=== PATIENT | female | born 1950 | race Caucasian/White ===

== ENCOUNTER → 2017-08-20 07:26 | Outpatient (CLI) | payer MEDICARE, BC, SELFPAY ==
--- NOTE | 2017-08-20 08:27 | PCM.OPRPT ---
Report of Operation Date of Procedure: 08/20/17 Pre-Operative Diagnosis: abnormal calcifications on right breast mammograms Post-Operative Diagnosis: same Surgery/Procedure Performed:: right stereotactic breast biopsy Description of Surgical Findings:: centrally located upper right breast abnormal calcifications Type of Anesthesia:: Local - 1% xylocaine Specimen's removed: right breast tissue Estimated Blood Loss (mL): < 1 Fluids Replaced: none Description of Procedure: After informed consent was given, the patient was brought into the breast biopsy suite. Appropriate time out protocol was followed. She was then placed in the prone position on the stereotactic biopsy table. The patients right breast was then placed in the opening at the head of the table. A fish technologist compression mammogram was then obtained in the CC view. The suspicious radiological lesion was then identified. Stereo pictures of the lesion were then taken for XYZ coordinates. The Mammotome biopsy stylus was then positioned where it would be entering into the patients breast. The skin at this site was then cleansed with a surgical skin preparation. The skin and subcutaneous tissues at this site were then infiltrated with 1% xylocaine. A small skin incision was made with an 11 blade scalpel. The biopsy stylus was then positioned into the patients breast at the proper coordinates of depth. Using the Mammotome vacuum-assist device, several core samples of breast tissue were obtained. A specimen mammogram was the obtained and revealed that the calcifications were within the specimen. A hemostatic marker clip was then placed into the biopsy cavity and a fish technologist film revealed that it was properly deployed. The patient was then placed in the supine position and pressure was applied to the breast until no active bleeding was noted. Steristrips were applied to reapproximate the skin. A unilateral mammogram in the CC and MLO view were then taken which revealed that the marker clip was in the same area as the previous suspicious lesion. The patient tolerated the procedure well and was discharged from the breast biopsy suite in good condition. Grafts/Implants Used: Titanium clip Lot [id number] - Complications none noted - Admit VTE Documentation VTE Present on Admission: No - low risk procedure for DVT/PE
--- NOTE | 2017-08-20 08:30 | BRBX_PTH ---
PATIENT: TIA RUIZ LOC: [facility] U#:[id number] AGE/SX: 75/F ROOM: RE08/20/[address]: Dr. Tia Read MD : [id number] BED: DIS: SPEC #: [id number] RECD: 08/20/17 14:41 STATUS: IDANIA REHubert #: [id number] DEDRA: 08/20/17 08:[address]: Tia Read DEPT: SURGICAL PATHOLOGY RECD BY: Don Mcclelland ENTERED: 08/20/17 14:41 SP TYPE: BREAST BX OTHR DR: Dr. Masoud Ramirez III, MD Tissues: Right breast, NOS Procedures: Surgery Specimen Level IV HEADER OPERATION: Right breast stereotactic needle core biopsy PRE-OP DIAGNOSIS: Microcalcifications TISSUE SUBMITTED: Right breast tissue ISCHEMIC TIME: 2 minutes FIXATION TIME: 11.5 hours MICROSCOPIC DIAGNOSIS Right breast, stereotactic needle core biopsy: Fibrocystic change, focal. Focal intraductal hyperplasia without atypia. Banal microcalcifications. No evidence of malignancy. AM:nayeli 08/21/17 COMMENT Rare vessel wall microcalcifications are also present. MICROSCOPIC DESCRIPTION Slides are reviewed. GROSS DESCRIPTION Received in fixative is one container labeled with the patient's name and designated right breast. The specimen consists of multiple irregular and elongated fragments of white-yellow soft tissue that in aggregate measure 3 x 2.2 x 0.2 cm. The specimen is totally submitted in one cassette. / AM:nayeli 08/20/17 TC:5 CPT: 78526
--- NOTE | 2017-08-20 08:30 | OP.PCM_ITS ---
Report of Operation Date of Procedure: 08/20/17 Pre-Operative Diagnosis: abnormal calcifications on right breast mammograms Post-Operative Diagnosis: same Surgery/Procedure Performed:: right stereotactic breast biopsy Description of Surgical Findings:: centrally located upper right breast abnormal calcifications Type of Anesthesia:: Local - 1% xylocaine Specimen's removed: right breast tissue Estimated Blood Loss (mL): < 1 Fluids Replaced: none Description of Procedure: After informed consent was given, the patient was brought into the breast biopsy suite. Appropriate time out protocol was followed. She was then placed in the prone position on the stereotactic biopsy table. The patient?s right breast was then placed in the opening at the head of the table. A heater furnace compression mammogram was then obtained in the CC view. The suspicious radiological lesion was then identified. Stereo pictures of the lesion were then taken for XYZ coordinates. The Mammotome biopsy stylus was then positioned where it would be entering into the patient?s breast. The skin at this site was then cleansed with a surgical skin preparation. The skin and subcutaneous tissues at this site were then infiltrated with 1% xylocaine. A small skin incision was made with an 11 blade scalpel. The biopsy stylus was then positioned into the patient?s breast at the proper coordinates of depth. Using the Mammotome vacuum-assist device, several core samples of breast tissue were obtained. A specimen mammogram was the obtained and revealed that the calcifications were within the specimen. A hemostatic marker clip was then placed into the biopsy cavity and a heater furnace film revealed that it was properly deployed. The patient was then placed in the supine position and pressure was applied to the breast until no active bleeding was noted. Steristrips were applied to reapproximate the skin. A unilateral mammogram in the CC and MLO view were then taken which revealed that the marker clip was in the same area as the previous suspicious lesion. The patient tolerated the procedure well and was discharged from the breast biopsy suite in good condition. Grafts/Implants Used: Titanium clip Lot [id number] - Complications none noted - Admit VTE Documentation VTE Present on Admission: No - low risk procedure for DVT/PE
== END ==
PROVIDERS: Family Provider Family Medicine; PCP Family Medicine; Visit Provider Surgery
DX: R92.8 Other abnormal and inconclusive findings on diagnostic imaging of breast (principal); R92.0 Mammographic microcalcification found on diagnostic imaging of breast
CPT/HCPCS: 19081; 88305; J7050; A4648

== ENCOUNTER 2021-10-04 09:17 | Emergency (ER) | payer MEDICARE, BC, SELFPAY ==
[2021-10-04 09:18] VITALS: BP 107/72; PULSE 88; RESP 16; TEMP 36.6; O2SAT 99; BMI 25.8
--- NOTE | 2021-10-04 09:35 | EKG12_ITS ---
Test Reason : CP Blood Pressure : / mmHG Vent. Rate : 082 BPM Atrial Rate : 082 BPM P-R Int : 144 ms QRS Dur : 078 ms QT Int : 358 ms P-R-T Axes : 065 088 069 degrees QTc Int : 418 ms Normal sinus rhythm Normal ECG Confirmed by CECY STEPHENS, ABBY ([id number]), index editor VINCE VARGAS ([id number]) on 10/05/2021 1:38:36 PM Referred By: PEDRO Confirmed By:ABBY SAM MD
--- NOTE | 2021-10-04 09:46 | EDS_ITS ---
HPI History of Present Illness Chief Complaint: Chest Pain Informant: patient Onset/Context/Timing Onset: Days Activity at onset: gradual Timing: Intermittent Quality: Positive for Burning Location: Substernal Current Severity: Gone Maximum Severity: Mild Worsened By: Breathing Relieved By: Nothing Associated Symptoms: Negative for Nausea, Vomiting, Diaphoresis, Dyspnea, Cough, Fever, Lightheadedness, Acid Reflux and Palpitations Narrative Narrative: 71-year-old female history of ovarian cancer with a hysterectomy in 2007 is done well since that time. She has no cardiac history. She is never had a DVT or PE. About 7 weeks ago she had a left knee replacement done at [facility]. Patient states the last 2 days she has had a burning discomfort in her chest. She normally does not get reflux. She denies any leg pain or swelling. She denies any hemoptysis. She says it is somewhat worse with deep breathing. Better when she is upright. Prior Similar Symptoms: No Recent Illness/Hospitalization: No CVD Risk Factors: Negative for Hypertension, Diabetes and Smoking PE Risk Factors: Positive for Recent Immobilization; Negative for Recent Travel/Surgery, Prior DVT or PE, Cancer and OCP + Smoking + >/=35 TAD Risk Factors: Negative for Marfan's Syndrome and Hypertension PFSH PFSH Home Medications latanoprost 1 drp EACH EYE QHS 10/04/21 [History Last Taken Unknown] Allergy/AdvReac Type Severity Reaction Status Date / Time No Known Allergies Allergy Verified 10/04/21 09:18 Social History Smoking Status: Never smoker ROS ROS ED ROS Narrative Chest pain. Review of Systems ROS Unobtainable: Denies due to encephalopathy Constitutional Constitutional ED: Denies fever(s) Eyes Eyes: Denies none ENT ENT ED: Denies ear pain Cardiovascular Cardiovascular: Reports as per HPI and chest pain; Denies palpitations or racing heartbeat Respiratory/Chest Respiratory/Chest: Denies cough or dyspnea Gastrointestinal Gastrointestinal: Denies abdominal pain, diarrhea, nausea or vomiting Genitourinary Genitourinary ED: Denies dysuria Musculoskeletal Musculoskeletal: Denies myalgias Integumentary Denies rash Neurologic Neurologic: Denies headache(s) Psychiatric Psychiatric: Denies depression Endocrine Endocrinology: Denies polyuria Hematologic/Lymphatic Hematologic/Lymphatic: Denies easy bruising Allergic/Immunologic Allergic/Immunologic ED: Denies urticaria EXAM Physical Exam Narrative Exam Narrative: 71-year-old female no acute distress. Vital signs are stable afebrile. She does not look septic or toxic. Currently she is symptom-free. P ulse ox 99% and room air no hypoxia. H EENT exam unremarkable. Neck nontender. Lungs clear to auscultation bilaterally. Heart regular rate and rhythm rate about 88 no murmur. Chest were nontender. Abdomen soft nontender. Moving all 4 extremities. Well-healed. Calf nontender without edema or cords. Normal director construction services strength bilaterally. Dorsi plantarflexion intact. Neurologic exam unremarkable. Const Vital Signs: 10/04/21 09:18 10/04/21 09:24 10/04/21 10:18 Temperature 97.8 F Temperature Source Temporal Pulse Rate 88 81 Respiratory Rate 16 16 Respiratory Effort Normal Non-Labored Blood Pressure 107/72 130/57 H Blood Pressure Mean 83 81 Pulse Ox 99 97 Oxygen Delivery Method Room Air Room Air 10/04/21 11:33 Temperature Temperature Source Pulse Rate 79 Respiratory Rate 16 Respiratory Effort Blood Pressure 130/67 H Blood Pressure Mean 88 Pulse Ox 98 Oxygen Delivery Method Room Air Positive well nourished and well developed; Negative for obese, cachectic, contractures or unkempt General Appearance ED: well developed and NAD; Negative for unkempt, cachectic, contractures or pallor Nutritional Appearance: Negative for cachectic or obese HEENT Reports moist mucous membranes normocephalic and atraumatic; Negative for trauma or tenderness Eyes PERRL and EOMs intact bilaterally General Eye ED: Negative for pale conjunctiva or scleral icterus Neck no lymphadenopathy, supple and no JVD General: Negative for tenderness Chest Wall inspection of chest normal and palpation of chest normal Chest: Negative for tenderness Resp normal respiratory effort and clear to auscultation bilaterally Effort and Inspection: respiratory distress Auscultation: Negative for rales, rhonchi or wheezes Cardio regular rate, regular rhythm, S1 normal heart sound, S2 normal heart sound and no murmurs Rate: Negative for bradycardia or tachycardic Rhythm: Negative for abnormal rhythm GI normal to inspection, nondistended, normoactive bowel sounds, soft to palpation, non-tender, non-distended and no masses; Negative for hepatosplenomegaly Auscultation: Negative for hyperactive bowel sounds Back/Spine no CVA tenderness and no thoracic nor lumbar tenderness General Back: Negative for CVA tenderness Extremity normal to inspection Extremity Narrative: Well-healed recent left knee surgery incision. General Extremety ED: Negative for edema or tenderness General Extremity: Negative for edema Neuro oriented x3 and CN's II-XII intact bilaterally Sensorium / Orientation: awake, alert, oriented to person, oriented to place and oriented to time Motor Exam: strength 5/5 throughout Psych mental status grossly normal Appearance: Negative for unkempt Attitude: No agitated Mood & Affect: Negative for depressed or tearful Skin no rashes or lesions noted and no wounds General Skin Exam: Negative for jaundice or pallor Heart Score History: Slightly/Non-Suspicious ECG: Normal Age: >/= 65 years Troponin: </= Normal Limit Score: 2 MDM MDM MDM Narrative Medical decision making narrative: 71-year-old female with atypical nonexertional chest discomfort. Undergo a cardiac work-up. Also a D-dimer due to her recent orthopedic surgery. Exam benign. Repeat exam at 10:40 AM patient is doing well. We discussed her test results. A CTA of the chest is ordered and we are waiting on that. Patient doing well at 11:40 AM. Will be discharged home. Lab Data Attestation: I reviewed the patient's lab results. Lab results narrative: CBC unremarkable white count of 6. H&H of 13 and 41. Platelets normal. Electrolytes unremarkable normal gap of 4. Normal BUN and creatinine. Normal troponin of 5. D-dimer is elevated 3.15 a CTA of the chest to be obtained. Labs: Laboratory Results - last 24 hr 10/04/21 10/04/21 10/04/21 09:30 09:30 09:30 WBC 6.1 RBC 4.39 Hgb 13.4 Hct 41.8 MCV 95.2 MCH 30.5 MCHC 32.1 RDW Std Deviation 44.7 H RDW Coeff of Vilma 12.7 Plt Count 279 MPV 9.8 Immature Gran % (Auto) 0.200 Neut % (Auto) 72.4 H Lymph % (Auto) 17.3 L Hancock % (Auto) 9.0 Eos % (Auto) 0.8 Baso % (Auto) 0.3 Absolute Neuts (auto) 4.4 Absolute Lymphs (auto) 1.06 Nucleated RBC % 0 D-Dimer Quant (PE/DVT) 3.15 H* Sodium 137 Potassium 3.7 Chloride 104 Carbon Dioxide 29.0 Anion Gap 4 L BUN 14 Creatinine 0.73 Estim Creat Clear Calc 50.18 Est GFR (MDRD) Af Amer 101 Est GFR (MDRD) Non-Af 83 BUN/Creatinine Ratio 19.1 Glucose 107 H Calcium 8.8 Troponin I High Sens 5 Radiography Chest X-Ray - ED: 1 View, Read by ED Physician, Heart, Lungs, Mediastinum, Bony Structures, No Acute Disease and Chronic Changes Diagnostic Testing: Clinical Impression(s) from Imaging Studies Chest X-Ray 10/04/21 09:50 IMPRESSION: Hyperinflation. No acute abnormality is seen. Electronically Signed: Ellis Conde MD at 10:48 EDT , Chest CTA 10/04/21 10:42 IMPRESSION: No evidence of pulmonary embolism. Focal infiltrate in the posterior aspect of the left upper lobe. There are 2 small alveolar rounded nodular densities in the left upper lobe as discussed. Follow-up is recommended in 3 months. Electronically Signed: Ellis Conde MD at 11:29 EDT , Chest x-ray, portable, single view interpreted by myself shows chronic changes no acute process. CTA of the chest is read by the radiologist reviewed by me shows no acute abnormality. Rounded densities. No PE. Rhythm Strip Rhythm Strip: Sinus Rhythm Rate: 82 Ectopy: None EKG Initial EKG: Attestation: I personally reviewed and interpreted this EKG as follows: Interpretation: Sinus Rhythm and No Acute Injury Pattern Comments: Normal sinus rhythm rate 82 no acute signs of IN nor ischemia. Discharge Plan Triage Chief Complaint: Chest Pain ED Provider: Tigre Parikh Dx/Rx/DC Orders Clinical Impression: Chest pain Instructions: ED Chest Pain, Uncertain Cause Prescriptions: No Action latanoprost 0.005 % drops 1 drp EACH EYE QHS RF: 0 Primary Care Provider: Westley Worthy Referrals: Westley Worthy MD [Primary Care Provider] - 3-5 Days if not improving Activity Restrictions/Additional Instructions: Your tests are unremarkable. The CAT scan showed no blood clot. There were small nodules seen which they may want to get a repeat chest x-ray in 3 months. We do not have a specific cause of your chest discomfort today. Disposition Disposition: Home, Self Care
--- NOTE | 2021-10-04 09:50 | RAD_ITS ---
STUDY: X-RAY CHEST REASON FOR EXAM: Female, 71 years old. Chest pain TECHNIQUE: Single AP portable view of the chest. COMPARISON: None. FINDINGS: EKG electrodes are seen. Hyperinflation. The lungs are clear. There is no demonstrated pleural abnormality. Normal size heart. Normal mediastinum and gino. Normal visualized pulmonary arteries. Normal visualized aortic arch and descending thoracic aorta. There are degenerative changes of the visualized thoracic spine. Normal visualized ribs, clavicles, and shoulders. There is no demonstrated abnormality of the visualized soft tissue structures of the upper abdomen. RAD/Chest 1 View (Portable) IMPRESSION: Hyperinflation. No acute abnormality is seen. Electronically Signed: Ellis Conde MD at 10:48 EDT ,
[2021-10-04 09:59] LABS: Absolute Lymphocyte Count 1.06 X10^3/uL (0.83-4.51); Absolute Neutrophil Count 4.4 X10^3/uL (2.0-7.7); Basophil# 0.02 X10^3/uL; Basophil% 0.3 % (0-1); Eosinophil# 0.05 X10^3/uL; Eosinophils% 0.8 % (0-5); Hematocrit 41.8 % (37-47); Hemoglobin 13.4 g/dL (12.0-15.0); Lymphocyte # 1.06 X10^3/ul (0.83-4.51); Lymphocyte % 17.3 % (19-41); Mean Corp Hgb Conc 32.1 g/dL (32-36); Mean Corpuscular Hgb 30.5 pg (27.0-32.0); Mean Corpuscular Volume 95.2 fL (81-99); Mean Platelet Vol. 9.8 fl (6.2-12.0); Monocyte# 0.55 X10^3/uL; NRBC Flagged by Analyzer 0 % (0-5); Neutrophil # 4.43 X10^3/uL (2.7-7.7); Neutrophil % 72.4 % (47-70); Platelet Count 279 K/mm3 (150-450); RBC Distribution Width CV 12.7 % (11.6-14.6); RBC Distribution Width SD 44.7 fl (35.1-43.9); Red Blood Count 4.39 M/mm3 (4.2-5.4); White Blood Count 6.1 K/mm3 (4.4-11.0)
[2021-10-04 10:11] LABS: Anion Gap 4 (5-15); BUN 14 mg/dL (7-18); BUN/Creat Ratio 19.1 RATIO (10-20); Calcium,Total 8.8 mg/dL (8.5-10.1); Chloride 104 mmol/L (98-107); Creatinine, Serum 0.73 mg/dL (0.55-1.02); EST Glomerular Filtration Rate 83 mL/min (>60); Est Glom Filt Rate - Afr Amer 101 mL/min (>60); Estimated Creatinine Clearance 50.18 ml/min; Glucose 107 mg/dL (74-106); Potassium 3.7 mmol/L (3.5-5.1); Sodium Level 137 mmol/L (136-145); Troponin-I HS 5 pg/mL (3.0-54.0)
[2021-10-04 10:13] LABS: D-Dimer Quantitative (DVT/PE) 3.15 FEU/ug/m (0.27-0.49)
[2021-10-04 10:18] VITALS: BP 130/57; PULSE 81; RESP 16; O2SAT 97
--- NOTE | 2021-10-04 10:42 | CT_ITS ---
STUDY: CTA CHEST REASON FOR EXAM: Female, 71 years old. Elevated d-dimer. Intermittent chest pain for 2 days. RADIATION DOSAGE (If Supplied By Facility): CTDIvol = ( 5.15 ) mGy, DLP = ( 244.94 ) mGycm TECHNIQUE: The examination was performed with the intravenous administration of IV 100mL [id number]-370. Post-processing of the angiographic images was performed, with multiplanar reformation and 3D reconstruction. Individualized dose optimization techniques were used for this CT. COMPARISON: Comparison is made with prior chest radiograph done earlier today. FINDINGS: Normal enhancement of the main pulmonary artery and right and left pulmonary arteries. Normal enhancement of the bilateral peripheral pulmonary arteries. There is no demonstrated pulmonary embolism. Normal thoracic aorta and visualized great vessels. There is no demonstrated aortic dissection. Normal heart and pericardium. Normal mediastinum. Normal hilar regions. Normal visualized trachea and bronchi. Hyperinflation. Focal infiltrate in the posterior aspect of the left upper lobe. Minimal increased markings at the right lung base suggestive of scarring. There is a 1.3 cm rounded alveolar density in the anterior aspect of the left upper lobe as seen on axial image #154 and coronal image #76. There is also evidence of a 1.2 cm x 0.9 cm rounded focal alveolar nodular density in the anterior medial aspect of the left upper lobe as seen on axial image #200 and coronal image #118. Normal pleura. Normal chest wall structures. Normal osseous structures. There is a 4.9 cm x 4.3 cm cyst in the anterior aspect of the upper pole of the left kidney. CT/CTA Chest W/WO Contrast IMPRESSION: No evidence of pulmonary embolism. Focal infiltrate in the posterior aspect of the left upper lobe. There are 2 small alveolar rounded nodular densities in the left upper lobe as discussed. Follow-up is recommended in 3 months. Electronically Signed: Ellis Conde MD at 11:29 EDT ,
[2021-10-04 11:33] VITALS: BP 130/67; PULSE 79; RESP 16; O2SAT 98
[2021-10-04 11:54] LABS: Troponin-I HS 5 pg/mL (3.0-54.0)
== END 2021-10-04 11:48 | disposition home or self-care (01) ==
PROVIDERS: Emergency Provider Emergency Medicine; PCP Internal Medicine; Visit Provider Emergency Medicine
DX: R07.9 Chest pain, unspecified (principal); Z85.43 Personal history of malignant neoplasm of ovary; Z90.710 Acquired absence of both cervix and uterus; Z96.652 Presence of left artificial knee joint
CPT/HCPCS: 36415; 71045; 71275; 80048; 84484; 85025; 85379; 93005; 99284; Q9967; A4216